=== PATIENT | male | born 1985 | race Caucasian/White ===

== ENCOUNTER → 2020-03-31 | Emergency (ER) | payer OTHER ==
[~2020-03-31] VITALS: Ht 177.8 cm; Wt 70.3 kg
[~2020-03-31] MED LIST: HYDR-4924 PO; HYDROmorphone HCL 2 MG/ML VL IV ONE; ONDA-144 PO; ONDANSETRON HCL 4 MG/2 ML VIAL IV ONE; PANT40TA2 PO; PROMETHAZINE HCL 25 MG/ML 1ML IV ONE; SODIUM CHLORIDE 0.9% 1,000 ML IV ONE; TETANUS-DIPTH-ACEL PERTUSSIS 0.5ML SYR Tdap IM ONE
[2020-03-31 11:45] LABS: Eosinophils # (auto) 0 10 ^3/uL (0-0.8); Eosinophils % (auto) 0.1 % (0.0-7.0); Hemoglobin 13.4 g/dL (13.5-17.5); Monocytes # (auto) 1.4 10 ^3/uL (0-1.3); White Blood Cell 24.9 10^3/uL (4.4-10.8)
[2020-03-31 11:46] LABS: Basophils # (auto) 0.1 10 ^3/uL (0-0.2); Basophils % (auto) 0.2 % (0.0-2.0); Hematocrit 41.1 % (41.0-53.0); Lymphocytes % (auto) 4.2 % (10.0-50.0); Mean Corpuscular Hgb Conc. 32.5 g/dL (32.0-36.0); Mean Corpuscular Volume 83.2 fL (80.0-100.0); Monocytes % (auto) 5.6 % (0.0-12.0); Neutrophils # (auto) 22.4 10 ^3/uL (1.6-8.6); Neutrophils % (auto) 89.9 % (37.0-80.0); Platelet Count (auto) 426 10^3/uL (140-450); Red Blood Cells 4.95 10^6/uL (4.5-5.90); Red Cell Distribution Width 16.4 % (11.8-14.3)
[2020-03-31 11:56] LABS: INR 1.11 (0.9-1.15); Partial Thromboplastin Time 20.5 sec (23.0-31.2)
[2020-03-31 12:02] LABS: Albumin 4.1 g/dL (3.4-5.0); Calcium 9.1 mg/dL (8.5-10.1); Magnesium 2.8 mg/dL (1.6-2.6); Potassium 3.4 mmol/L (3.5-5.1)
[2020-03-31 12:05] LABS: BUN/Creatinine Ratio 9.5; Bilirubin, Total 0.4 mg/dL (0.2-1.0); Total Protein 7.1 g/dL (6.4-8.2)
[2020-03-31 13:05] LABS: Urine WBC None Seen /hpf (0 - 3)
[2020-03-31 13:24] LABS: Urine Bacteria NONE SEEN /hpf (None Seen); Urine Blood Negative /uL (Negative); Urine Specific Gravity 1.011 (1.001-1.035)
[2020-03-31 21:03] VITALS: BP 119/78
== END | disposition home or self-care (01) ==
LOC: EDUNIT# 08:29 → EDBD 08:34 → ER 08:34
DX: S22.31XA Fracture of one rib, right side, initial encounter for closed fracture (principal); S27.321A Contusion of lung, unilateral, initial encounter; S27.0XXA Traumatic pneumothorax, initial encounter; F17.210 Nicotine dependence, cigarettes, uncomplicated; Z79.899 Other long term (current) drug therapy; Y08.89XA Assault by other specified means, initial encounter; Y93.89 Activity, other specified; Y92.89 Other specified places as the place of occurrence of the external cause; Y99.8 Other external cause status
CPT/HCPCS: 36415; 71101; 71250; 73090; 73590; 74176; 80053; 81001; 83735; 85025; 85610; 85730; 90471; 90715; 96361; 96374; 96375; 99285; J1170; J2550; J7030